=== PATIENT | male | born 1970 | race Caucasian/White ===

== ENCOUNTER → 2017-02-02 | Outpatient (CLI) | payer MEDICAID ==
[2017-02-02 14:20] LABS: BICARBONATE 27.9 mmol/L (18.0-23.0); PCO2 44 mmHg (35-45); PO2 86 mmHg (80-90)
== END | disposition disaster alternative care site (69) ==
LOC: GLAB 13:00
PROVIDERS: Internal Medicine Critical Care Medicine
DX: J96.10 Chronic respiratory failure, unspecified whether with hypoxia or hypercapnia (principal); J98.4 Other disorders of lung